=== PATIENT | male | born 1960 | race African-American/Black ===

== ENCOUNTER → 2017-03-06 | Outpatient (CLI) | payer MEDICARE ==
[2016-05-02 20:24] VITALS: BP 150/84
[~2017-03-06] MED LIST: ALPR0.254 PO; BUPR300T4 PO; CRESTOR20 MG PO; FLUT1DIS3 IH; GABA-585 PO; GABA-586 PO; HYDR-971 PO; IPRA4AER IH; LISI1TAB5 PO; METF500T4 PO; NAPR550T PO; NPH,100V SQ; NPH,100V5 SQ; ORPH100T PO; neurontin
--- NOTE | 2017-03-06 16:56 | RAD ---
Right lower extremity arterial duplex study 03/06/2017 Clinical history: Peripheral vascular disease involving the right leg. Technique: Using a combination of real-time ultrasound imaging and color-flow and pulse Doppler imaging techniques, duplex evaluation of the major arterial structures of the right lower extremity was performed. Multiple images were obtained. Findings: No previous imaging studies are available for comparison. Mild scattered atheromatous plaque formation is seen involving the major arterial structures of the right lower extremity. Triphasic arterial waveforms are seen involving the right common femoral, superficial femoral, popliteal, posterior tibial and deep femoral arteries. Monophasic arterial waveforms are seen involving the right peroneal, anterior tibial and dorsalis pedis arteries. The peak systolic velocity within the distal right superficial femoral artery is elevated measuring 175.6 cm/s. Proximal to this the peak systolic velocity is 61 cm/s. These velocities when compared to the real-time images are consistent with a stenosis of 50%. No additional area of stenosis is seen. No area of occlusion is noted. Impression: Mild scattered atheromatous plaque formation is seen involving the major arterial structures of the right lower extremity. A 50% stenosis is seen involving the distal right superficial femoral artery. No area of occlusion is seen.
== END | disposition home or self-care (01) ==
LOC: US 14:10
PROVIDERS: ATTEND Family Medicine
DX: I70.213 Atherosclerosis of native arteries of extremities with intermittent claudication, bilateral legs (principal)
CPT/HCPCS: 93926

== ENCOUNTER → 2017-03-09 | Outpatient (CLI) | payer MEDICARE ==
[2016-05-02 20:24] VITALS: BP 150/84
[~2017-03-09] MED LIST changes: +GADOBUTROL 10 MMOL/10 ML VIAL INT ART ONE
--- NOTE | 2017-03-09 12:52 | RAD ---
Indication left leg pain. Grayscale color Doppler and spectral imaging was performed. Examination was targeted to the major vessels of the left leg. The common femoral artery appeared essentially unremarkable. A minimally elevated peak velocity was seen proximally in the SFA compatible with mild stenosis. There are triphasic waveforms in the deep femoral and superficial femoral artery. The popliteal artery also demonstrates a biphasic waveform. The posterior tibial artery distally is biphasic. A similar waveform is seen in the anterior tibial and peroneal arteries. IMPRESSION: High-grade arterial stenosis is not seen in the major arteries involving either lower extremity. Relatively mild disease in the calf vessels is not excluded and there is probably mild narrowing in the proximal superficial femoral artery.
[2017-03-09 13:16] LABS: CREATININE 0.9 mg/dL (0.7-1.3); GFR 105.2
--- NOTE | 2017-03-09 14:32 | RAD ---
MRI Brain with and without contrast History:Numbness In Arms, Lips, And Legs With Headaches X 2 Months Technique: Axial diffusion, axial gradient echo T2, axial T2, axial FLAIR, sagittal and axial T1, and postcontrast axial, sagittal, and coronal T1-weighted images were acquired of the brain. Contrast: 9 cc Gadavist Comparison: None Findings: There is no evidence of recent infarct or cytotoxic edema. The ventricles, sulci, and cisterns are within normal limits in size and configuration. There is no significant midline shift, intraaxial mass effect, or focal abnormal extra-axial fluid collection. There are multiple small foci of T2 and FLAIR hyperintense signal abnormality concentrated in the periatrial white matter and parietal deep white matter and also of the occipital lobes greater on the left and also left temporal lobe not associated with significant enhancement or mass effect. There are some other scattered small foci anteriorly such as in the left frontal white matter. There is no nodular parenchymal or leptomeningeal enhancement. There is preservation of the major intracranial flow-voids at the skull base. The cerebellar tonsils are normal in location. There is no significant abnormality of the pineal gland or pituitary gland. There is a large mucous retention cyst right maxillary sinus on the order of 2.2 cm AP, smaller focus also present more anteriorly. There is patchy mild bilateral ethmoid air cell mucosal thickening. There is mild thickening of the right mastoid air cells. There is preserved marrow signal of the clivus. Impression: 1. There are foci of nonenhancing T2 and FLAIR hyperintense signal abnormality of the supratentorial white matter most notable of the periatrial white matter and parietal lobes and left occipital temporal lobes. The pattern is not particularly suggestive of underlying inflammatory demyelinating disease although not excluded in a patient of this age. Sequela of chronic microvascular ischemic disease would be another consideration especially if risk factors such as hypertension or diabetes. There is no significant variable restricted diffusion or enhancement as more commonly associated with vasculitis. 2. There are right maxillary sinus mucous retention cysts. Electronically signed by: Marcell Costa MD (03/09/2017 2:28 PM)
== END | disposition home or self-care (01) ==
LOC: MRI 11:54
PROVIDERS: ATTEND Family Medicine
DX: I70.213 Atherosclerosis of native arteries of extremities with intermittent claudication, bilateral legs (principal); R20.0 Anesthesia of skin; J45.909 Unspecified asthma, uncomplicated; J44.9 Chronic obstructive pulmonary disease, unspecified; I10 Essential (primary) hypertension; E11.9 Type 2 diabetes mellitus without complications
CPT/HCPCS: 36415; 70553; 82565; 93926; A9585

== ENCOUNTER → 2017-03-16 | Outpatient (CLI) | payer MEDICARE ==
[2016-05-02 20:24] VITALS: BP 150/84
[~2017-03-16] MED LIST changes: -GADOBUTROL 10 MMOL/10 ML VIAL INT ART ONE
[2017-03-16 15:11] LABS: BARBITURATES NEG (NEG); BENZODIAZEPINES POS (NEG); CANNABINOIDS NEG (NEG); COCAINE NEG (NEG); METHADONE NEG (NEG); OPIATES NEG (NEG); PHENCYCLIDINE NEG (NEG)
[2017-03-16 15:37] LABS: FREE T4 1.01 ng/dL (0.76-1.46)
== END | disposition home or self-care (01) ==
LOC: LAB 14:39
PROVIDERS: ATTEND Psychiatry & Neurology Neurology
DX: E11.42 Type 2 diabetes mellitus with diabetic polyneuropathy (principal)
CPT/HCPCS: 36415; 82550; 82607; 84439; 84443; 86141; G0480; G0481

== ENCOUNTER → 2017-06-10 | Outpatient (CLI) | payer MEDICARE ==
[2016-05-02 20:24] VITALS: BP 150/84
[~2017-06-10] MED LIST changes: +NAPR-682 PO; -NAPR550T PO
[2017-06-10 12:59] LABS: CREATININE 1.1 mg/dL (0.7-1.3); GFR 83.5
== END | disposition home or self-care (01) ==
LOC: LAB 12:07
PROVIDERS: ATTEND Psychiatry & Neurology Neurology
DX: R51 Headache (principal)
CPT/HCPCS: 36415; 82565; 82607; 84520; 85651; 86141

== ENCOUNTER → 2018-03-02 | Outpatient (CLI) | payer MEDICARE ==
[2018-03-02 12:24] LABS: BLOOD UREA NITROGEN 11 mg/dL (8-26)
[2018-03-02 12:24] LABS: CREATINE KINASE 259 U/L (39-308); GFR 92.9
== END | disposition home or self-care (01) ==
LOC: LAB 11:33
DX: E11.42 Type 2 diabetes mellitus with diabetic polyneuropathy (principal); R74.8 Abnormal levels of other serum enzymes
CPT/HCPCS: 36415; 82550; 82565; 84520

== ENCOUNTER → 2018-03-11 | Outpatient (CLI) | payer MEDICARE | END | disposition home or self-care (01) | LOC: US 11:19 | DX: I70.291 Other atherosclerosis of native arteries of extremities, right leg (principal) | CPT/HCPCS: 93926 ==

== ENCOUNTER 2019-03-19 13:23 | Emergency (ER) | payer MEDICARE ==
[~2019-03-19] VITALS: Ht 180.3 cm; Wt 83.9 kg
[~2019-03-19 13:23] MED LIST changes: -GABA-586 PO; +GABA300C18 PO; +HYDR-3164 PO; -HYDR-971 PO; +METF500T16 PO; -METF500T4 PO
[2019-03-19 14:15] LABS: BASO # 0.1 x10^3/uL (0.0-0.2); BASO % 1 % (0-3); EOS # 0.4 x10^3/uL (0.0-0.7); EOS % 5 % (0-3); HEMATOCRIT 40.1 % (39.0-53.0); HEMOGLOBIN 13.9 g/dL (13.0-17.5); LYMPH # 1.6 x10^3/uL (1.0-4.8); LYMPH % 19 % (24-48); MEAN CORPUSCULAR HEMOGLOBIN 32 pg (25-35); MEAN CORPUSCULAR HGB CONC 35 g/dL (31-37); MEAN CORPUSCULAR VOLUME 92 fL (79-100); MONO # 0.8 x10^3/uL (0.0-1.1); MONO % 10 % (0-9); NEUT # 5.5 x10^3uL (1.8-7.7); NEUT % 65 % (31-73); PLATELET COUNT 256 x10^3/uL (140-400); RED BLOOD COUNT 4.38 x10^6/uL (4.30-5.70); RED CELL DISTRIBUTION WIDTH 15.1 % (11.5-14.5); WHITE BLOOD COUNT 8.4 x10^3/uL (4.0-11.0)
[2019-03-19] MEDS ORDERED: methylPREDNISolone SOD SUCC PF 125 MG/2 ML VIAL. IV ONE (14:15)
[2019-03-19] MEDS ORDERED: IPRATRPIUM/ALBUTEROL 0.5/2.5MG 3 ML NEBU. NEB ONE (14:15)
--- NOTE | 2019-03-19 14:17 | PHYS DOC ---
Past Medical History Past Medical History: Cancer, COPD, Diabetes-Type II, High Cholesterol, Hypertension, Other Additional Past Medical Histor: PROSTATE CA Past Surgical History: Other Additional Past Surgical Histo: prostatectomy,STENT IN LEG Additional Information: 0.5 PPD Alcohol Use: None Drug Use: None Adult General Chief Complaint Chief Complaint: MULTIPLE COMPLAINTS HPI HPI Patient is a 58 year old who presents with multiple complaints. The patient states he started having chest pain 3 days ago. The patient states he became short of breath 4 days ago. The patient had a cough last 2 weeks. The patient had quit smoking for 8 months, and then just started smoking again the last several weeks. The patient has tried Gas-X, and Pepto-Bismol at home as well as duonebs which has not been helping. Rates his pain as 10 out of 10 describes as stabbing in the chest. The pain becomes worse when he coughs and is tender to palpation. It is located midsternally. Has history of COPD. Review of Systems Review of Systems Constitutional: Denies fever or chills [] Eyes: Denies change in visual acuity, redness, or eye pain [] HENT: Denies nasal congestion or sore throat [] Respiratory: Reports cough and shortness of breath [] Cardiovascular: No additional information not addressed in HPI [] GI: Denies abdominal pain, nausea, vomiting, bloody stools or diarrhea [] : Denies dysuria or hematuria [] Musculoskeletal: Reports back pain and right thumb pain. Integument: Denies rash or skin lesions [] Neurologic: Denies headache, focal weakness or sensory changes [] Endocrine: Denies polyuria or polydipsia [] Complete systems were reviewed and found to be within normal limits, except as documented in this note. Current Medications Current Medications Current Medications Medications (Trade) Dose Ordered Sig/Bonita Start Time Stop Time Status Last Admin Dose Admin Albuterol Sulfate (Ventolin Neb Soln) 10 mg 1X ONCE 03/19/19 15:00 03/19/19 15:01 DC 03/19/19 15:05 10 MG Albuterol/ Ipratropium (Duoneb) 3 ml 1X ONCE 03/19/19 14:15 03/19/19 14:16 DC 03/19/19 14:35 3 ML Methylprednisolone Sodium Succinate (SOLU-Medrol 125MG VIAL) 125 mg 1X ONCE 03/19/19 14:15 03/19/19 14:16 DC 03/19/19 14:28 125 MG Allergies Allergies Allergies Coded Allergies Type Severity Reaction Last Updated Verified No Known Drug Allergies 03/08/15 No Physical Exam Physical Exam Constitutional: Well developed, well nourished, no acute distress, non-toxic appearance, is talking in full sentences. HENT: Normocephalic, atraumatic, bilateral external ears normal, oropharynx moist, no oral exudates, nose normal. [] Eyes: PERRLA, EOMI, conjunctiva normal, no discharge. [] Neck: Normal range of motion, no tenderness, supple, no stridor. [] Cardiovascular:Heart rate regular rhythm, no murmur, tenderness to chest on palpation. Lungs & Thorax: Bilateral breath sounds with rhonchi diffusely. Abdomen: Bowel sounds normal, soft, no tenderness, no masses, no pulsatile masses. [] Skin: Warm, dry, no erythema, no rash. [] Back: No tenderness, no CVA tenderness. [] Extremities: No tenderness, no cyanosis, no clubbing, ROM intact, no edema. [] Neurologic: Alert and oriented X 3, normal motor function, normal sensory function, no focal deficits noted. [] Psychologic: Affect normal, judgement normal, mood normal. [] Current Patient Data Vital Signs Vital Signs Date Time Temp Pulse Resp B/P (MAP) Pulse Ox O2 Delivery O2 Flow Rate FiO2 03/19/19 15:12 92 Room Air 03/19/19 13:31 97.7 99 20 125/71 (89) 97.7 Lab Values Laboratory Tests Test 03/19/19 13:47 03/19/19 15:50 White Blood Count 8.4 x10^3/uL (4.0-11.0) Red Blood Count 4.38 x10^6/uL (4.30-5.70) Hemoglobin 13.9 g/dL (13.0-17.5) Hematocrit 40.1 % (39.0-53.0) Mean Corpuscular Volume 92 fL (79-100) Mean Corpuscular Hemoglobin 32 pg (25-35) Mean Corpuscular Hemoglobin Concent 35 g/dL (31-37) Red Cell Distribution Width 15.1 % (11.5-14.5) H Platelet Count 256 x10^3/uL (140-400) Neutrophils (%) (Auto) 65 % (31-73) Lymphocytes (%) (Auto) 19 % (24-48) L Monocytes (%) (Auto) 10 % (0-9) H Eosinophils (%) (Auto) 5 % (0-3) H Basophils (%) (Auto) 1 % (0-3) Neutrophils # (Auto) 5.5 x10^3uL (1.8-7.7) Lymphocytes # (Auto) 1.6 x10^3/uL (1.0-4.8) Monocytes # (Auto) 0.8 x10^3/uL (0.0-1.1) Eosinophils # (Auto) 0.4 x10^3/uL (0.0-0.7) Basophils # (Auto) 0.1 x10^3/uL (0.0-0.2) Erythrocyte Sedimentation Rate 3 (0-15) Sodium Level 138 mmol/L (136-145) Potassium Level 3.7 mmol/L (3.5-5.1) Chloride Level 102 mmol/L (98-107) Carbon Dioxide Level 26 mmol/L (21-32) Anion Gap 10 (6-14) Blood Urea Nitrogen 6 mg/dL (8-26) L Creatinine 0.9 mg/dL (0.7-1.3) Estimated GFR (Cockcroft-Gault) 104.5 BUN/Creatinine Ratio 7 (6-20) Glucose Level 239 mg/dL (70-99) H Calcium Level 8.7 mg/dL (8.5-10.1) Total Bilirubin 0.3 mg/dL (0.2-1.0) Aspartate Amino Transferase (AST) 18 U/L (15-37) Alanine Aminotransferase (ALT) 29 U/L (16-63) Alkaline Phosphatase 63 U/L (46-116) Troponin I Quantitative < 0.017 ng/mL (0.000-0.055) TO-Zlh-C-Type Natriuretic Peptide 81 pg/mL (0-124) Total Protein 7.1 g/dL (6.4-8.2) Albumin 3.5 g/dL (3.4-5.0) Albumin/Globulin Ratio 1.0 (1.0-1.7) Urine Collection Type Void Urine Color Yellow Urine Clarity Clear Urine pH 6.0 Urine Specific [place] <=1.005 Urine Protein Negative mg/dL (NEG-TRACE) Urine Glucose (UA) Negative mg/dL (NEG) Urine Ketones (Stick) Negative mg/dL (NEG) Urine Blood Negative (NEG) Urine Nitrite Negative (NEG) Urine Bilirubin Negative (NEG) Urine Urobilinogen Dipstick 0.2 mg/dL (0.2 mg/dL) Urine Leukocyte Esterase Negative (NEG) Urine RBC 0 /HPF (0-2) Urine WBC 0 /HPF (0-4) Urine Bacteria 0 /HPF (0-FEW) Laboratory Tests 03/19/19 13:47 Laboratory Tests 03/19/19 13:47 EKG EKG [] Radiology/Procedures Radiology/Procedures EKG was interpreted by Dr. Chelsea PEREZ STEMI, Sinus with rate of 94. PATIENT: MACY HOROWITZ ACCOUNT: [id number] : 1960 LOCATION: ER AGE: 58 SEX: M EXAM STATUS: REG ER ORD. PHYSICIAN: MACY SANTOS APRN REASON: sob/cp X3 weeks PROCEDURE: CHEST PA & LATERAL EXAM: CHEST 2 VIEWS. HISTORY: Chest pain, shortness of breath. COMPARISON: 06/17/2016. FINDINGS: Frontal and lateral views of the chest are obtained. The hemidiaphragms are partially flattened. There are no confluent infiltrates. There is no pneumothorax or pleural effusion. The heart is not enlarged. IMPRESSION: 1. Hyperinflation suggests chronic obstructive pulmonary disease. No confluent infiltrates. Electronically signed by: Jamie Dillon MD (03/19/2019 2:54 PM) [facility] Course & Med Decision Making Course & Med Decision Making Pertinent Labs and Imaging studies reviewed. (See chart for details) Will order labs, chest x-ray, ekg, and duoneb. Chest x-ray is unremarkable. Chest pain is producable on palpation. Heart score is 3. Duoneb only helped slightly. Will order an hour long treatment. Labs are unremarkable. Urine is unremarkable. Patient improved with hour long treatment. Gave patient option of admission or attempt to treat at home. Patient choose to go home. Will d/c with Tessalon Perles, Steroids, and antibiotic. Also instructed patient to drink plenty of water. Patient is agreeable. Dragon Disclaimer Dragon Disclaimer This electronic medical record was generated, in whole or in part, using a voice recognition dictation system. Departure Departure Impression: Primary Impression: COPD exacerbation Disposition: 01 HOME, SELF-CARE Condition: STABLE Referrals: SPEEDY ABEBE DO (PCP) Patient Instructions: Chronic Obstructive Pulmonary Disease Exacerbation Additional Instructions: Thank you for visiting [facility]. We appreciate you trusting us with your care. If any additional problems come up don't hesitate to return to visit us. Please follow up with your primary care provider so they can plan additional care if needed and know about the problem that you had. If symptoms worsen come back to the Emergency Department. Any concerning symptoms that start such as chest pain, shortness of Air, weakness or numbness on one side of the body, running high fevers or any other concerning symptoms return to the ER. You have been prescribed an antibiotic today to help fight your infection. Please take all of the antibiotic as directed. If after 48 hours the infection is not improving, please return for more care. If the infection worsens, return to ER for additional care. Please fill your medications at any pharmacy and follow the prescription instructions. Please stop smoking. Taken Mucinex per label instruction [id number]. Plenty of water to help thin your secretions. Scripts Prednisone (PREDNISONE) 20 Mg Tablet 1 TAB PO BID for 5 Days, #10 TAB Prov: MACY SANTOS APRN 03/19/19 Benzonatate (TESSALON PERLE) 100 Mg Capsule 100 MG PO TID PRN for COUGH for 7 Days, #21 CAP Prov: MACY SANTOS APRN 03/19/19 Doxycycline Hyclate (DOXYCYCLINE HYCLATE) 100 Mg Tablet 1 TAB PO BID for 7 Days, #14 TAB Prov: MACY SANTOS APRN 03/19/19 The HEART Score for CP Pts HEART Score for Chest Pain: HEART Score for Chest Pain Response (Comments) Value History Slighlty/Non-Suspicious 0 ECG Normal 0 Age >45 - < 65 1 Risk Factors >3 Risk Factors or Hx CAD 2 Troponin < Normal Limit 0 Total 3 Risk Factors: Risk Factors: DM, Current or recent (<one month) smoker, HTN, HLP, family history of CAD, obesity. Risk Scores: Score 0 - 3: 2.5% MACE over next 6 weeks - Discharge Home Score 4 - 6: 20.3% MACE over next 6 weeks - Admit for Clinical Observation Score 7 - 10: 72.7% MACE over next 6 weeks - Early Invasive Strategies MACY SANTOS APRN Mar 19, 2019 14:17
[2019-03-19 14:26] LABS: CALCIUM 8.7 mg/dL (8.5-10.1); CREATININE 0.9 mg/dL (0.7-1.3); GFR 104.5; POTASSIUM 3.7 mmol/L (3.5-5.1)
[2019-03-19 14:32] LABS: ALBUMIN 3.5 g/dL (3.4-5.0); TOTAL BILIRUBIN 0.3 mg/dL (0.2-1.0); TOTAL PROTEIN 7.1 g/dL (6.4-8.2)
--- NOTE | 2019-03-19 14:56 | RAD ---
EXAM: CHEST 2 VIEWS. HISTORY: Chest pain, shortness of breath. COMPARISON: 06/17/2016. FINDINGS: Frontal and lateral views of the chest are obtained. The hemidiaphragms are partially flattened. There are no confluent infiltrates. There is no pneumothorax or pleural effusion. The heart is not enlarged. IMPRESSION: 1. Hyperinflation suggests chronic obstructive pulmonary disease. No confluent infiltrates. Electronically signed by: Jamie Dillon MD (03/19/2019 2:54 PM) [facility]
[2019-03-19] MEDS ORDERED: ALBUTEROL SULFATE 2.5 MG/3 ML NEBU. CONT NEB ONE (15:00)
--- NOTE | 2019-03-19 15:54 | EKG ---
[facility] [address] [place] [address] Test Date: 2019-03-19 Test Time: 13:36:19 Pat Name: MACY HOROWITZ Department: Room: Gender: M Network Admin: MARTIN : 1960 Requested By: MACY SANTOS Order Number: [id number] Reading MD: Measurements Intervals [place] Rate: 94 P: 68 MI: 122 QRS: 65 QRSD: 80 T: 56 QT: 336 QTc: 425 Interpretive Statements SINUS RHYTHM QRS(T) CONTOUR ABNORMALITY CONSIDER ANTEROLATERAL MYOCARDIAL DAMAGE POSSIBLY ABNORMAL ECG RI6.01 No previous ECG available for comparison
[2019-03-19 16:01] LABS: BILIRUBIN,URINE NEGATIVE (NEG); CLARITY,URINE CLEAR; COLOR,URINE YELLOW; NITRITE,URINE NEGATIVE (NEG); PROTEIN,URINE NEGATIVE (NEG-TRACE); UROBILINOGEN,URINE 0.2 mg/dL (0.2 mg/dL)
[2019-03-19 16:07] LABS: BACTERIA,URINE 0 /HPF (0-FEW); RBC,URINE 0 /HPF (0-2); WBC,URINE 0 /HPF (0-4)
[2019-03-19] MEDS ORDERED: PRED20TA PO (16:23)
[2019-03-19] MEDS ORDERED: DOXY100T PO (16:23)
[2019-03-19] MEDS ORDERED: BENZ100C PO (16:23)
[2019-03-19 16:38] VITALS: BP 133/68
== END 2019-03-19 16:46 | disposition home or self-care (01) ==
LOC: ER 13:23
DX: J44.1 Chronic obstructive pulmonary disease with (acute) exacerbation (principal); E11.9 Type 2 diabetes mellitus without complications; E78.00 Pure hypercholesterolemia, unspecified; I10 Essential (primary) hypertension; F17.200 Nicotine dependence, unspecified, uncomplicated
CPT/HCPCS: 36415; 71046; 80053; 81001; 83880; 84484; 85025; 85651; 93005; 94640; 94644; 96374; 99285; J2930; J7613; J7620

== ENCOUNTER 2021-07-06 17:18 | Emergency (ER) | payer MEDICARE ==
[~2021-07-06] VITALS: Ht 180.3 cm; Wt 85.0 kg
[~2021-07-06 17:18] MED LIST changes: +BENZ100C PO; -BUPR300T4 PO; +BUPR300T92 PO; +DOXY100T PO; +LISI1TAB37 PO; -LISI1TAB5 PO; +PRED20TA PO
[2021-07-06] MEDS ORDERED: IV NORMAL SALINE 1000ML BAG 1,000 ML IV ONE (18:00)
[2021-07-06 18:07] LABS: BASO # 0.1 x10^3/uL (0.0-0.2); BASO % 1 % (0-3); EOS # 0.6 x10^3/uL (0.0-0.7); EOS % 6 % (0-3); HEMATOCRIT 30.9 % (39.0-53.0); HEMOGLOBIN 9.7 g/dL (13.0-17.5); LYMPH # 2.4 x10^3/uL (1.0-4.8); LYMPH % 26 % (24-48); MEAN CORPUSCULAR HEMOGLOBIN 23 pg (25-35); MEAN CORPUSCULAR HGB CONC 32 g/dL (31-37); MEAN CORPUSCULAR VOLUME 73 fL (79-100); MONO # 0.9 x10^3/uL (0.0-1.1); MONO % 10 % (0-9); NEUT # 5.5 x10^3/uL (1.8-7.7); NEUT % 58 % (31-73); PLATELET COUNT 396 x10^3/uL (140-400); RED BLOOD COUNT 4.24 x10^6/uL (4.30-5.70); RED CELL DISTRIBUTION WIDTH 20.1 % (11.5-14.5); WHITE BLOOD COUNT 9.5 x10^3/uL (4.0-11.0)
--- NOTE | 2021-07-06 18:08 | RAD ---
EXAM: AP View of the chest DATE: 07/06/2021 6:03 PM INDICATION: Reason: SOA / Spl. Instructions: / History: COMPARISON: No Prior FINDINGS: The heart is not enlarged. Mediastinal and hilar contours are normal. No focal parenchymal airspace opacity. No pleural effusion or pneumothorax. IMPRESSION: 1. No radiographic evidence for acute cardiopulmonary process. Electronically signed by: Gab Joyner MD (07/06/2021 6:06 PM) [place]
[2021-07-06 18:13] LABS: CALCIUM 8.7 mg/dL (8.5-10.1); CREATININE 1.5 mg/dL (0.7-1.3); GFR 57.6; POTASSIUM 4.1 mmol/L (3.5-5.1)
--- NOTE | 2021-07-06 18:14 | PHYS DOC ---
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 Patient states he was diagnosed with lung cancer recently, he states he was told the need to remove 50% of his lung, he states he does not believe he has lung cancer. He presents today complaining of increased cough and shortness of breath. Patient is also complaining of "black" stools with 10 out of 10 abdominal pain and headaches. He states he had an MRI done for his brain yesterday but he does not have results. He states he was told at [facility] he has bleeding in his colon but they were not able to figure out where the bleeding is coming from. Patient denies any nausea, vomiting. 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 [] Eyes: Denies change in visual acuity. [] HENT: Denies nasal congestion or sore throat. [] Respiratory: Reports cough and shortness of breath. [] Cardiovascular: Denies chest pain or edema. [] GI: Reports abdominal pain with the diarrhea nausea, vomiting, bloody stools : Denies dysuria. [] Musculoskeletal: Denies back pain or joint pain. [] Integument: Denies rash. [] Neurologic: Reports headache, denies focal weakness or sensory changes. [] Psychiatric: Denies depression or anxiety. 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) Current Medications: Current Medications Medications (Trade) Dose Ordered Sig/Bonita Start Time Stop Time Status Last Admin Dose Admin Famotidine (Pepcid Vial) 20 mg 1X ONCE 07/06/21 18:30 07/06/21 18:31 07/06/21 18:02 20 MG Sodium Chloride 1,000 ml @ 1,000 mls/hr 1X ONCE 07/06/21 18:00 07/06/21 18:59 07/06/21 17:58 1,000 MLS/HR (SP WHALEN PROFESSOR 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 [] HENT: Normocephalic, atraumatic, bilateral external ears normal, oropharynx moist, no oral exudates, nose normal. [] Eyes: PERRLA, EOMI, conjunctiva normal, no discharge. [] Neck: Normal range of motion, no tenderness, supple, no stridor. [] Cardiovascular:Heart rate regular rhythm Lungs & Thorax: Bilateral breath sounds clear to auscultation [] Abdomen: Bowel sounds normal, soft, no tenderness, no masses, no pulsatile masses. [] Skin: Warm, dry, no erythema, no rash. [] Back: No tenderness, no CVA tenderness. [] Extremities: No tenderness, no cyanosis, no clubbing, ROM intact, no edema. [] Neurologic: Alert and oriented X 3, normal motor function, normal sensory function, no focal deficits noted. Cranial nerves II through XII intact Psychologic: Affect normal, judgement normal, mood normal. 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) Current Patient Data: Labs: Laboratory Tests Test 07/06/21 17:44 White Blood Count 9.5 x10^3/uL (4.0-11.0) Red Blood Count 4.24 x10^6/uL (4.30-5.70) L Hemoglobin 9.7 g/dL (13.0-17.5) L Hematocrit 30.9 % (39.0-53.0) L Mean Corpuscular Volume 73 fL (79-100) L Mean Corpuscular Hemoglobin 23 pg (25-35) L Mean Corpuscular Hemoglobin Concent 32 g/dL (31-37) Red Cell Distribution Width 20.1 % (11.5-14.5) H Platelet Count 396 x10^3/uL (140-400) Neutrophils (%) (Auto) 58 % (31-73) Lymphocytes (%) (Auto) 26 % (24-48) Monocytes (%) (Auto) 10 % (0-9) H Eosinophils (%) (Auto) 6 % (0-3) H Basophils (%) (Auto) 1 % (0-3) Neutrophils # (Auto) 5.5 x10^3/uL (1.8-7.7) Lymphocytes # (Auto) 2.4 x10^3/uL (1.0-4.8) Monocytes # (Auto) 0.9 x10^3/uL (0.0-1.1) Eosinophils # (Auto) 0.6 x10^3/uL (0.0-0.7) Basophils # (Auto) 0.1 x10^3/uL (0.0-0.2) Platelet Estimate Pending Laboratory Tests 07/06/21 17:44 Vital Signs: Vital Signs Date Time Temp Pulse Resp B/P (MAP) Pulse Ox O2 Delivery O2 Flow Rate FiO2 07/06/21 17:35 97.8 103 18 121/68 (85) 100 Room Air 97.8 (SP 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 Groves sinus rhythm heart rate 100 no STEMI [] (SP WHALEN PROFESSOR OF BIOSTATISTICS) Radiology/Procedures: Radiology/Procedures: []PROCEDURE: PORTABLE CHEST 1V EXAM: AP View of the chest DATE: 07/06/2021 6:03 PM INDICATION: Reason: SOA / Spl. Instructions: / History: COMPARISON: No Prior FINDINGS: The heart is not enlarged. Mediastinal and hilar contours are normal. No focal parenchymal airspace opacity. No pleural effusion or pneumothorax. IMPRESSION: 1. No radiographic evidence for acute cardiopulmonary process. Electronically signed by: Gab Loyd MD (07/06/2021 6:06 PM) [facility] DICTATED and SIGNED BY: GAB LOYD MD DATE: 07/06/21 [id number] PROCEDURE: CT ABD PELV W/ IV CONTRST ONLY Exam: CT of abdomen and pelvis with contrast INDICATION: Nausea vomiting TECHNIQUE: Sequential axial images through the abdomen and pelvis obtained following the administration of 60 mL of Omni 300 IV contrast. Sagittal and coronal reformatted images were reconstructed from the axial data and reviewed. Exposure: One or more of the following in the visualized dose reduction techniques were utilized for this examination: 1. Automated exposure control 2. Adjustment of the MA and/or KV according to patient size 3. Use of iterative of reconstructive technique Comparisons: None FINDINGS: Heart size is normal. No pericardial effusion. Visualized lung bases are clear. No pleural effusion. Liver, spleen, pancreas, gallbladder and adrenals are unremarkable. No perinephric inflammation or hydronephrosis. No renal or ureteral calculi are identified. Bladder is decompressed not well evaluated. Prostate is nonenlarged likely surgically absent. Penile pump is noted with reservoir in the right adnexa. Diverticulosis noted in the descending and sigmoid colon without evidence of acute diverticulitis. Moderate amount stool in the colon. Appendix is normal. No free intra-abdominal air or fluid. No obstruction. Abdominal aorta has normal course and caliber. Abdominal vasculature is patent. No enlarged intra-abdominal lymph nodes are identified. No suspicious osseous lesions or acute fractures. IMPRESSION: No acute process identified within the abdomen or pelvis. Diverticulosis without evidence of acute diverticulitis. Electronically signed by: Jair Ponce MD (07/06/2021 7:05 PM) [facility] DICTATED and SIGNED BY: JAIR PONCE MD DATE: 07/06/21 [id number] (SP WHALEN APRN) Course & Med Decision Making: Course & Med Decision Making Pertinent Labs and Imaging studies reviewed. (See chart for details) This a 60-year-old male patient presenting to the ED today with multiple complai nts that seem to have been addressed at already. Patient is complaining of a headache and had an MRI of his brain done yesterday, he has no results. He is complaining of black stools, he states he was seen at and was admitted for 2 weeks, he states they could not find the source of the bleeding but they told him he has bleeding in his colon. He is also complaining of shortness of breath, he states he was diagnosed with lung cancer but does not believe it. Vitals on arrival to the ED temperature 97.8, HR was 103 on arrival it immediately went down to 88, BP 121/68, O2 sats 100% on room air. CBC with a normal WBC, hemoglobin 9.7 with hematocrit of 30, patient states he recently received blood transfusion at , he has no idea what his hemoglobin was and when the transfusion was done but it sounds like the transfusion was done 2 weeks ago. CMP with creatinine of 1.5, BUN is normal, glucose 220, history of diabetes type 2 CT of the abdomen and pelvic is negative. Negative rapid Covid test I spoke to Dr. Basurto about admitting this patient, he came and spoke to patient and requested patient to be discharged and he can follow-up with his specialists and PCP at (SP WHALEN APRN) Course & Med Decision Making I have reviewed and agree with the emergency department course for this patient that was seen by midlevel provider. Agree with plan. Sumanth Palacios DO (SUMANTH PALACIOS DO) Salvador Disclaimer: Salvador Disclaimer: This electronic medical record was generated, in whole or in part, using a voice recognition dictation system. (SP WHALEN APRN) Departure Departure Impression: Primary Impression: Cough Additional Impressions: Shortness of breath Anemia Qualified Codes: D64.9 - Anemia, unspecified Disposition: HOME / SELF CARE / HOMELESS Condition: STABLE Referrals: SPEEDY ABEBE DO (PCP) follow up with your doctors at on Thursday Patient Instructions: Anemia, Nonspecific-Brief, Cough, Adult, [id number], Shortness of Breath, [id number] Additional Instructions: You were evaluated in the emergency room, we did lab work as well as chest x-ray and CT of the abdomen and pelvic, there is no acute findings in your work-up. Please follow-up with your own doctors next week. Consider taking [id number] iron tablets to keep your iron normal SP WHALEN APRN Jul 06, 2021 18:14 SUMANTH PALACIOS DO Jul 06, 2021 20:06
[2021-07-06 18:20] LABS: ALBUMIN 3.4 g/dL (3.4-5.0); MAGNESIUM 1.5 mg/dL (1.8-2.4); TOTAL BILIRUBIN 0.2 mg/dL (0.2-1.0); TOTAL PROTEIN 6.9 g/dL (6.4-8.2)
[2021-07-06] MEDS ORDERED: FAMOTIDINE 20 MG/2 ML VIAL IVP ONE (18:30)
[2021-07-06] MEDS ORDERED: IOHEXOL 300 MG/ML 100ML VIAL. IV ONE (18:30)
[2021-07-06 18:39] LABS: ANISOCYTOSIS MOD; BIZZARE CELLS FEW; HYPOCHROMIA MOD; MICROCYTOSIS SLIGHT; OVALOCYTES MOD; PLT ESTIMATE ADEQUATE (ADEQUATE); POLYCHROMASIA SLIGHT; SCHISTOCYTES OCC
[2021-07-06] MEDS ORDERED: CONTRAST GIVEN. MC PRN (18:45)
--- NOTE | 2021-07-06 19:07 | RAD ---
Exam: CT of abdomen and pelvis with contrast INDICATION: Nausea vomiting TECHNIQUE: Sequential axial images through the abdomen and pelvis obtained following the administrati on of 60 mL of Omni 300 IV contrast. Sagittal and coronal reformatted images were reconstructed from the axial data and reviewed. Exposure: One or more of the following in the visualized dose reduction techniques were utilized for this examination: 1. Automated exposure control 2. Adjustment of the MA and/or KV according to patient size 3. Use of iterative of reconstructive technique Comparisons: None FINDINGS: Heart size is normal. No pericardial effusion. Visualized lung bases are clear. No pleural effusion. Liver, spleen, pancreas, gallbladder and adrenals are unremarkable. No perinephric inflammation or hydronephrosis. No renal or ureteral calculi are identified. Bladder is decompressed not well evaluated. Prostate is nonenlarged likely surgically absent. Penile pump is noted with reservoir in the right adnexa. Diverticulosis noted in the descending and sigmoid colon without evidence of acute diverticulitis. Mo derate amount stool in the colon. Appendix is normal. No free intra-abdominal air or fluid. No obstru ction. Abdominal aorta has normal course and caliber. Abdominal vasculature is patent. No enlarged intra-abdominal lymph nodes are identified. No suspicious osseous lesions or acute fractures. IMPRESSION: No acute process identified within the abdomen or pelvis. Diverticulosis without evidence of acute diverticulitis. Electronically signed by: Jair Santana MD (07/06/2021 7:05 PM) [facility]
--- NOTE | 2021-07-06 19:08 | EKG ---
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
[2021-07-06 19:30] VITALS: BP 155/76
[2021-07-06] MEDS ORDERED: FERROUS SULFATE 325 MG TABLET. PO ONE (20:15)
--- NOTE | 2021-07-08 09:58 | NUR ---
IP: Informed pt of negative covid test. Pt verbalized understanding.
== END 2021-07-06 19:59 | disposition home or self-care (01) ==
LOC: ER 17:18
DX: D64.9 Anemia, unspecified (principal); Z20.822 Contact with and (suspected) exposure to COVID-19; R05.9 Cough, unspecified; R06.02 Shortness of breath; R51.9 Headache, unspecified; R10.9 Unspecified abdominal pain; J44.9 Chronic obstructive pulmonary disease, unspecified; E11.9 Type 2 diabetes mellitus without complications; E78.00 Pure hypercholesterolemia, unspecified; I10 Essential (primary) hypertension; F17.200 Nicotine dependence, unspecified, uncomplicated
CPT/HCPCS: 36415; 71045; 74177; 80053; 83735; 83880; 84443; 84484; 85025; 87426; 93005; 96361; 96374; 99285; J3490; J7030; Q9967; U0003; U0005